=== PATIENT | male | born 1960 | race Caucasian/White ===

== ENCOUNTER 2020-01-26 10:02 | Outpatient (CLI) | payer MEDICARE, SELFPAY ==
--- NOTE | ~2020-01-26 | CT_ITS ---
EXAMINATION:CT lung screening DATE: 01/26/2020 10:23 INDICATION: Personal history of tobacco dependence. Current smoker with 40 pack year history. TECHNIQUE: Computed tomography (CT) of the chest was performed without intravenous contrast. Automate d exposure control and iterative reconstruction technique were employed. The dose-length product (DLP ) was 143.10 mGy-cm. COMPARISON: None. FINDINGS: There is mild emphysema. There is mild atelectasis bilaterally. There are patchy groundglas s opacities in right upper lobe measuring up to 11 mm. No pleural effusion. The heart size is normal. There are coronary artery calcifications. There are changes of coronary bypass grafting. No pericard ial effusion. There is a left chest wall pacer with leads in the right atrium and right ventricle. Th ere is mild thoracic spondylosis. There is a chronic compression fracture of T8 vertebral body. There is mild chronic anterior wedging of T11 vertebral body. IMPRESSION: 1. Lung-RADS category 2: Benign appearance or behavior. Continue annual screening with noncontrast lo w-dose chest CT in 12 months. Reviewed, dictated and finalized at location A. [facility] IMPRESSION: 1. Lung-RADS category 2: Benign appearance or behavior. Continue annual screeni ng with noncontrast low-dose chest CT in 12 months.
== END 2020-01-26 10:03 | disposition home or self-care (01) ==
PROVIDERS: PCP Internal Medicine
DX: J43.9 Emphysema, unspecified (principal); F17.210 Nicotine dependence, cigarettes, uncomplicated
CPT/HCPCS: G0297

== ENCOUNTER 2022-09-11 01:14 | Day surgery (SDC) | payer MEDICARE, SELFPAY ==
[2022-09-02 11:19] VITALS: BMI 28.9
--- NOTE | 2022-09-10 16:15 | PM.HPGS ---
History of Present Illness History of Present Illness Consent: Risks, benefits, and alternatives have been discussed and questions answered. Patient agrees to proceed with procedure. Chief complaint: hx colon polyps Narrative: Ronal Magaña Jr. is a 61 year old male Referred for colon cancer screening. He has a history of polyps. He had 3 polyps removed about 3 years ago. Review of Systems Review of Systems: All systems reviewed & are unremarkable except as noted in HPI and below PMFSH Past Medical History Medical History Presence of combination internal cardiac defibrillator (ICD) and pacemaker Surgical History Surgical History S/P CABG x 3 Social History Social History Smoking packs per day: 1 Smoking cigarettes per day: 20.0 Years smoked: 40 Smoking pack-years: 40.00 Smoking status: Current every day smoker Tobacco type: cigarettes Alcohol intake: current Drinks per week: 10 Alcohol use details: BEERS Substance use: current Substance use type: marijuana Other substance usage details: COUPLE TIMES A WEEK SMOKE MARIJUANA Living arrangements: with family Spiritual care concerns: No Meds Home Medications and Allergies Home Medications Medication Instructions Recorded Confirmed Type atorvastatin 80 mg tablet 80 mg PO DAILY 11/09/19 09/02/22 History famotidine 20 mg tablet 20 mg PO BID 11/09/19 09/02/22 History gabapentin 300 mg capsule 300 mg PO BID 11/09/19 09/02/22 History icosapent ethyl 1 gram capsule 2 g PO BID 11/09/19 09/02/22 History (Vascepa) tamsulosin 0.4 mg capsule 0.4 mg PO HS 11/09/19 09/02/22 History aspirin 81 mg tablet 81 mg PO DAILY 09/02/22 09/02/22 History cholecalciferol (vitamin D3) 25 50 mcg PO DAILY 09/02/22 09/02/22 History mcg (1,000 unit) tablet (Vitamin D3) clopidogrel 75 mg tablet 75 mg PO DAILY 09/02/22 09/11/22 History dapagliflozin 10 mg tablet 10 mg PO DAILY 09/02/22 09/02/22 History (Farxiga) metoprolol tartrate 50 mg tablet 50 mg PO BID 09/02/22 09/02/22 History xiwrbjep-zgpp-domoq acid 400 1 tablet PO DAILY 09/02/22 09/02/22 History mcg-lycopene 600 mcg-ginkgo 120 mg tablet nitroglycerin 0.4 mg sublingual 0.4 mg sublingual DIRECTED PRN 09/02/22 09/02/22 History tablet Chest Pain sacubitril 49 mg-valsartan 51 mg 1 tablet PO DAILY 09/02/22 09/02/22 History tablet (Entresto) Allergies Allergy/AdvReac Type Severity Reaction Status Date / Time No Known Allergies Allergy Unknown Unverified 09/11/22 08:21 Exam Resp: Auscultation: clear to auscultation bilaterally Cardio: Rate: regular rate Rhythm: regular rhythm GI: GI Palp: Yes Soft to palpation and No Tenderness to palpation present (GI) Assessment and Plan Assessment and plan (1) Colon cancer screening: Code(s): Z12.11 - Encounter for screening for malignant neoplasm of colon Status: Acute Assessment and Plan: Colonoscopy with possible biopsy or polypectomy or cautery or injection of substances.
[2022-09-11 08:22] VITALS: BP 140/80; PULSE 89; RESP 18; TEMP 36.2; O2SAT 98
[2022-09-11] MEDS: LACTATED RINGERS 1,000 ML 150 ML IV CONT (08:34)
--- NOTE | 2022-09-11 08:53 | WPDANESEPPF ---
Anes - Initial Pre Proc Eval Procedure: Operation Date: 09/11/22 09:30 Proposed Procedures p Screening Colonoscopy - Luis Guillen MD Date/Time: 09/11/22 08:53 Surgeon: Luis Guillen MD Pre Op Diagnosis: hx colon polyps Patient Data Age: 61 Gender: M Height: 1.74 m Weight: 85.3 kg Last Vital Signs Temp 97.1 F L 09/11/22 08:22 Pulse 89 09/11/22 08:22 Resp 18 09/11/22 08:22 BP 140/80 09/11/22 08:22 Pulse Ox 98 09/11/22 08:22 O2 Del Method Room Air 09/11/22 08:22 Allergies Allergy/AdvReac Type Severity Reaction Status Date / Time No Known Allergies Allergy Unknown Unverified 09/11/22 08:21 Home Medications Medication Instructions Recorded Confirmed Type atorvastatin 80 mg tablet 80 mg PO DAILY 11/09/19 09/02/22 History famotidine 20 mg tablet 20 mg PO BID 11/09/19 09/02/22 History gabapentin 300 mg capsule 300 mg PO BID 11/09/19 09/02/22 History icosapent ethyl 1 gram capsule 2 g PO BID 11/09/19 09/02/22 History (Vascepa) tamsulosin 0.4 mg capsule 0.4 mg PO HS 11/09/19 09/02/22 History aspirin 81 mg tablet 81 mg PO DAILY 09/02/22 09/02/22 History cholecalciferol (vitamin D3) 25 50 mcg PO DAILY 09/02/22 09/02/22 History mcg (1,000 unit) tablet (Vitamin D3) clopidogrel 75 mg tablet 75 mg PO DAILY 09/02/22 09/11/22 History dapagliflozin 10 mg tablet 10 mg PO DAILY 09/02/22 09/02/22 History (Farxiga) metoprolol tartrate 50 mg tablet 50 mg PO BID 09/02/22 09/02/22 History vhgugmjp-oohg-qsahb acid 400 1 tablet PO DAILY 09/02/22 09/02/22 History mcg-lycopene 600 mcg-ginkgo 120 mg tablet nitroglycerin 0.4 mg sublingual 0.4 mg sublingual DIRECTED PRN 09/02/22 09/02/22 History tablet Chest Pain sacubitril 49 mg-valsartan 51 mg 1 tablet PO DAILY 09/02/22 09/02/22 History tablet (Entresto) Patient hx anesthesia problems: none Family hx anesthesia problems: none Results Review: All pre-operative results and documents have been reviewed as part of the pre-operative evaluation. COUNTS INCLUDE 234 BEDS AT THE [facility] Past Medical History Medical History (Updated 09/10/22 @ 16:16 by Luis Guillen MD) Presence of combination internal cardiac defibrillator (ICD) and pacemaker Surgical History Surgical History (Updated 11/10/19 @ 11:20 by Alfonzo Rosa MD) S/P CABG x 3 Social History Social History (Updated 11/10/19 @ 11:20 by Alfonzo Rosa MD) Smoking packs per day: 1 Smoking cigarettes per day: 20.0 Years smoked: 40 Smoking pack-years: 40.00 Smoking status: Current every day smoker Tobacco type: cigarettes Alcohol intake: current Drinks per week: 10 Alcohol use details: BEERS Substance use: current Substance use type: marijuana Other substance usage details: COUPLE TIMES A WEEK SMOKE MARIJUANA Living arrangements: with family Spiritual care concerns: No Anes - Eval Final PreProcedure Day of Procedure 09/11/22 08:53 Patient weight: normal Heart: regular rate and rhythm Lungs: clear to auscultation Airway: Mallampati scale class II Neurological: alert and oriented Last oral intake: >/= 8 hours ASA classification: III Emergent: no Anesthetic plan: proceed Anesthesia type and monitoring: general GIVS and standard monitoring Results Review: All pre-operative results and documents have been reviewed as part of the pre-operative evaluation. Informed Consent: The patient's anesthetic plan and its attendant risks and benefits were discussed with the patient/family/POA. Questions were solicited and answers provided to the satisfaction of the patient/family/POA.
[2022-09-11 09:49] VITALS: BP 135/62; PULSE 73; RESP 20; O2SAT 96
[2022-09-11 09:59] VITALS: BP 138/83; PULSE 70; RESP 20; O2SAT 97
[2022-09-11 10:13] VITALS: BP 154/84; PULSE 73; RESP 20; O2SAT 100
== END 2022-09-11 10:19 | disposition home or self-care (01) ==
PROVIDERS: PCP Internal Medicine; Visit Provider Internal Medicine Gastroenterology
PROC: 0DJD8ZZ Inspection of Lower Intestinal Tract, Via Natural or Artificial Opening Endoscopic (ICD-10-PCS; CPT 45378; principal; 2022-09-11 09:30)
DX: Z12.11 Encounter for screening for malignant neoplasm of colon (principal); D12.5 Benign neoplasm of sigmoid colon; F17.210 Nicotine dependence, cigarettes, uncomplicated; Z95.1 Presence of aortocoronary bypass graft; F12.90 Cannabis use, unspecified, uncomplicated; Z79.82 Long term (current) use of aspirin; Z79.02 Long term (current) use of antithrombotics/antiplatelets; Z79.84 Long term (current) use of oral hypoglycemic drugs; Z95.810 Presence of automatic (implantable) cardiac defibrillator
CPT/HCPCS: 45380; 88305; J2704; J7120